=== PATIENT | female | born 1985 | race Caucasian/White ===

== ENCOUNTER → 2016-11-16 | Outpatient (REF) ==
--- NOTE | 2016-11-16 12:54 | DI ---
EXAM: Two views of the chest. History: Annual physical exam screening chest radiograph Comparison: Chest radiograph 02/18/2015 Findings: Heart size is normal. No focal consolidation. No appreciable pleural fluid and no pneum othorax. No acute osseous abnormalities. Impression: No acute cardiopulmonary process.
== END ==
LOC: RAD 12:32
DX: Z02.89 Encounter for other administrative examinations (principal)

== ENCOUNTER 2018-06-10 10:38 | Outpatient (CLI) | END 2018-06-10 10:39 | disposition home or self-care (01) | LOC: RHC-LAB 10:38 | PROVIDERS: ATTEND Nurse Practitioner Family | DX: Z00.00 Encounter for general adult medical examination without abnormal findings (principal) | CPT/HCPCS: 36415; 80053; 80061; 84443; 85025 ==